=== PATIENT | female | born 1965 | race Caucasian/White ===

== ENCOUNTER 2017-05-14 20:34 | Observation (INO) | payer SELFPAY ==
[~2017-05-14] VITALS: Ht 176.5 cm; Wt 86.2 kg
--- NOTE | ~2017-05-14 | HP ---
Unit #: [id number] #: [id number] Patient: KAREN KING [id number] [address] [address] [id number] I MR#: [id number] NAME: KAREN KING. ROOM: [facility] Age: 52 Sex: F Admission Date: 05/15/2017 : 1965 Attending Physician: Tracy Le M.D. Referring Physician: No Primary Care Physician Primary Care Physician: No Primary Care Physician HISTORY AND PHYSICAL CHIEF COMPLAINT Leg rash, left leg edema, new diagnosis of diabetes mellitus. HISTORY This pleasant healthy, 52-year-old female who is not followed by a primary care physician, is admitted for complaints of leg rash and left leg edema. Patient states that she was well until some months ago and she noticed that her left leg would swell but would improve when supine. However, the past two weeks the leg has been persistently swollen with pain in the left lower calf. Over the past nine days, the patient developed petechial/purpuric rash over her legs, which are somewhat painful. She presents to this emergency department where her serum glucose is 339. She states that about five years ago she checked her Accu-Chek and it was in the 200s. Her fiancee has a glucometer at home. She has chronic polydipsia. Labs are also notable for elevated D-dimer, elevated MCV, elevated LFTs. Patient does drink about 30 to 40 oz of whiskey a day. PAST MEDICAL HISTORY Unremarkable. ALLERGIES None. ALLERGIES None. HOME MEDICATIONS None. FAMILY HISTORY Diabetes mellitus. SOCIAL HISTORY The patient lives with her fianabella. She was smoking but currently is using an E-cigarette. She does drink 30-40 oz of whiskey a day. She works as a photo journalist. Does not use illicit drugs. REVIEW OF SYSTEMS Notable for rash on legs with left leg swelling and left calf pain. Chronic polydipsia. All other systems were reviewed and are otherwise negative. PHYSICAL EXAMINATION Unit #: [id number] #: [id number] Patient: KAREN KING GENERAL: Very pleasant, 52-year-old female who currently is in no acute distress. VITAL SIGNS: Temperature 98.6, pulse 97, respirations 16, blood pressure 144/81, O2 saturation 98% on room air. HEENT: Eyes - PERRLA, extraocular muscles are intact. Pharynx is benign. NECK: Supple without adenopathy or thyromegaly. CHEST: Clear. CARDIAC: Slightly tachy S1 and S2 with a very soft systolic murmur best heard at the upper sternal borders. ABDOMEN: Bowel sounds are present. Patient does have hepatomegaly on exam. Nontender. No masses. EXTREMITIES: Left leg edema. Some discomfort in the left calf with dorsal flexion on the left. Pedal pulses are present. Patient has a vasculitic rash over the lower extremities bilaterally. NEUROLOGIC: Patient is awake, alert and oriented. Cranial nerves are intact. Equal strength throughout. DIAGNOSTIC STUDIES ADMISSION LABS: Hematocrit 40.9, white blood count is normal, platelet count normal, MCV 107.4. Coags normal. Elevated D-dimer. SMA 12 - glucose 339, chloride 99, AST 75, alk phos 123. C-reactive protein mildly elevated at 1.2. ASSESSMENT 1. Bilateral leg rash, rule out leukocytoclastic vasculitis. 2. Left leg edema. 3. New diagnosis of AODM, although I suspect patient has been diabetic for some time. 4. Alcohol abuse. 5. History of tobacco use. PLAN 1. Doppler of the legs, rule out left leg DVT. 2. One dose of prednisone, ask dermatology to see. Will check a hepatitis profile, YOLANDA, and chest x-ray. 3. Hemoglobin A1c. 4. Obtain urinalysis. 5. Benzos and vitamins. 6. Start Glucotrol, constant carb diet. 7. Ask oyster grower to instruct and ask healthcare technician to see for glucometer. 8. Further workup depending on above. Dictated by Ekaterina Hernadez/ts TD: 05/15/2017 06:32 JOB #: [id number] Unit #: [id number] #: [id number] Patient: KAREN KING HISTORY AND PHYSICAL Page 1 of 1 X Tracy Le MD HISTORY AND PHYSICAL
--- NOTE | ~2017-05-14 | A ---
[facility] Nutrition Therapy DATE: 05/15/17 Patient: KAREN KING Physician: SHERLYN Address: [address] [place] [address] Room/Bed: [address] [place] [address], Zip: [place] [address] Admit Date: 05/15/17 Date of : [birth year] Height: 5 9.5 Weight: 190 86.18 NUTRITIONAL ASSESSMENT: REASON: Diabetic diet education consult Admitting dx: 52 y/o female admitted with leg swelling, newly diagnosed DM PMH: daily ETOH use, hx smoking Anthropometrics: Ht: 59.5", Wt: 189 lbs, BMI: 27 (overweight) Labs: glucose 220, POC 311-370, A1C 9.9 Meds: Glucotrol, MVI Assessment: Chart reviewed, events noted. See admitting dx and PMH as stated above. RD consulted to provide DM diet education. Patient newly diagnosed this admission, however MD states he thinks she has had DM for awhile now, but she has not been seeing a PCP. See out of range labs above. She is currently tolerating a consistent carb diet. Pt was sleeping at time of RD visit to room, but she woke up to talk with me. 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 She did not wish to verbally review the handouts provided at this time, which included: T2DM nutrition therapy, 1500 calorie/day 5-day sample meal plan and diabetes label reading tips. Unable to determine pt understanding/motivation of diet education as she did not feel like going over with me at this time, and did not wish for me to return later. RD encouraged diet compliance and 5-10% BW loss (10-20 lbs) to improve glycemic control. Patient agreed and went back to sleep. She will be discharged on glucotrol. See recs below. Recommendations: 1. Continue consistent carb diet, recommend 45-60 g carbs per meal and 15-30 g carbs per snack. 2. RD provided written diabetes diet education as stated above. Contact info left. 3. Encourage diet compliance and 10-20 lb weight loss. 4. CM to see for glucometer instructions. Please consult with any further nutritional needs prior to discharge Respectfully, [facility] Nutrition Therapy DATE: 05/15/17 Patient: KAREN KING Physician: SHERLYN Address: [address] [place] [address] Room/Bed: [address] [place] [address], Zip: [place] [address] Admit Date: 05/15/17 Date of : [birth year] Height: 5 9.5 Weight: [address], LD [facility] cc: client file
--- NOTE | ~2017-05-14 | US84 ---
[id number] [facility] [address] [facility]. [place], [place] [address] [id number] MR#: [id number] Acc #: [id number] NAME: KAREN KING : 1965 SEX: F STUDY DATE/TIME: 05/15/2017 7:44 UNIT: C4 ROOM: [facility] STUDY DESCRIPTION: US LE Veins Complete Ramesh Stdy Attending Physician: Deloris Winston M.D. Referring Physician: Primary Care Physician No Ordering Physician: Tracy Le M.D. Primary Care Physician: Primary Care Physician No MEDICAL IMAGING REPORT This report is preliminary unless electronic signature is present EXAM Bilateral lower extremity venous Doppler INDICATION Bilateral lower extremity edema for the past month. PROCEDURE Arias-scale, color Doppler and Doppler spectral imaging deep veins of the right and left leg. COMPARISON None FINDINGS Deep veins in the right and left leg compress normally, show normal color Doppler and spectral characteristics. IMPRESSION No evidence for DVT in the right or left leg. Dictated by... Juan Miguel Kahn M.D. THIS IS AN ELECTRONICALLY VERIFIED REPORT Juan Miguel Kahn M.D. at 05/19/2017 11:06 AM Jeison TD: 05/15/2017 11:14 JOB #: [id number] MEDICAL IMAGING REPORT Page 1 of 1 COPY
--- NOTE | ~2017-05-14 | DS ---
Unit #: [id number] #: [id number] Patient: KAREN KING [id number] [address] [address] [id number] I MR#: [id number] NAME: KAREN KING. ROOM: [facility] Age: 52 Sex: F Admission Date: 05/15/2017 : 1965 Discharge Date: 05/16/2017 Attending Physician: Deloris Winston M.D. Referring Physician: No Primary Care Physician Primary Care Physician: No Primary Care Physician DISCHARGE SUMMARY PRINCIPAL DIAGNOSES 1. Bilateral lower extremity vasculitis, question Henoch-Schonlein purpura. 2. Newly diagnosed diabetes mellitus type 2 with hemoglobin A1c of 9.9. 3. Chronic alcohol abuse without evidence of withdrawal. 4. Mild vitamin B12 deficiency with vitamin B12 level of 253. 5. Overweight. CONSULTANTS Dr. Knapp - Dermatology. PROCEDURES 1. Chest x-ray on May 15, 2017, with no acute findings. 2. Bilateral extremity venous Doppler which is negative for DVT. CLINICAL HISTORY/HOSPITAL COURSE Ms. King is a really nice 52-year-old female who presents to the emergency department with a new leg rash with associated pain and new left lower extremity edema. Please refer to H and P for further details. In the emergency department, the patient was found to have petechiae over the lower extremities. She was also found to have significant hyperglycemia with a glucose of 340. The patient was subsequently admitted. In regards to patient's vasculitis, she was placed on prednisone. Dr. Knapp was consulted and clinically he feels this is most consistent with Henoch-Schonlein purpura. The patient will be maintained on prednisone. I will not ASO titer was checked and was negative. YOLANDA and viral hepatitis panel is currently pending and I will follow up these after discharge. On prednisone therapy and clobetasol cream, her symptoms are much improved. In regards to patient's elevated blood sugars, her A1c was found to be significantly elevated. She has received dietary education and we have discussed need to refrain from any further alcohol use given this is definitely contributing to her elevated glucose levels. Sugars here have remained elevated but, again, she has been on prednisone therapy. I am going to continue her on medications as outlined below and I think we will have a more accurate assessment of her sugar control at home with alcohol cessation, diet control and off of prednisone in the next several weeks. The patient, again, has chronic alcohol abuse with 30 to 40 ounces of whiskey a day. She had no evidence of alcohol withdrawal here but she was Unit #: [id number] #: [id number] Patient: KAREN KING placed on scheduled Librium. I am going to taper Librium as an outpatient and patient is agreeable to refraining from any further alcohol use. I will note, she did not receive anything on the [facility] protocol. The patient was also found to have a macrocytic anemia with a mild vitamin B12 deficiency. I suspect she also has some underlying folate deficiency and will continue her on a multivitamin and vitamin B12 supplement. Her macrocytosis may also be partially secondary to her chronic alcohol abuse and should be monitored. Today, patient is clinically much improved and I think can be discharged home. DISCHARGE CONDITION Stable. DISCHARGE STATUS Discharge to home. DISCHARGE MEDICATIONS 1. Prednisone 20 mg, two tablets p.o. daily for seven days. 2. Clobetasol 0.05% cream to be applied topically to rash on her legs twice daily for one week. 3. Librium 25 mg, one tablet four times daily for two days, then one tablet t.i.d. for three days, then one tablet b.i.d. for three days, then one tablet daily for three days. 4. Daily multivitamin. 5. Glucotrol 5 mg b.i.d. 6. Vitamin B12 1000 mcg p.o. daily. DISCHARGE INSTRUCTIONS The patient was instructed to follow a constant carb diet, to refrain from any further alcohol use. She will do Accu-Cheks twice daily at home, one fasting and one meal two hours postprandial but I informed her again it would probably be about ten days before we get more accurate readings. FOLLOWUP The patient will follow up in transition clinic in approximately two weeks. She is to bring a log of her sugars to the visit and her glucometer. If sugars after completion of steroids are remaining above 200, perhaps initiation of metformin will also be appropriate. Will try to arrange long term care phlebotomist primary care at that time as well. Dictated by... Deloris Winston M.D. FELICIANO/jonnathan TD: 05/16/2017 12:28 JOB #: [id number] Unit #: [id number] #: [id number] Patient: KAREN KING DISCHARGE SUMMARY Page 1 of 1 X Deloris Winston MD X DISCHARGE SUMMARY
--- NOTE | ~2017-05-14 | CR63 ---
[facility] A Service of [facility] RADIOLOGY TEXT RESULTS PATIENT: KAREN KING LOCATION: [facility] : [birth year] UNIT #: [id number] AGE: [address]: Deloris Winston MD SEX: F ORDER DR: [id number] [place], [place] [address] [id number] I MR#: [id number] Acc #: [id number] NAME: KAREN KING : 1965 SEX: F STUDY DATE/TIME: 05/15/2017 7:25 UNIT: [facility] ROOM: [facility] STUDY DESCRIPTION: CR Chest 2 View Attending Physician: Deloris Winston M.D. Referring Physician: No Primary Care Physician Ordering Physician: Tracy Le M.D. Primary Care Physician: No Primary Care Physician MEDICAL IMAGING REPORT This report is preliminary unless electronic signature is present EXAM PA and lateral chest. DATE 05/15/2017 HISTORY 52-year-old female, vasculitis with a rash and swelling of the bilateral lower extremities and shortness of breath since yesterday. Diabetes. COMPARISON None FINDINGS No acute airspace disease. Normal heart size. No pleural effusion or pneumothorax. IMPRESSION No acute cardiopulmonary findings. Dictated by... Mandy Ibarra M.D. THIS IS AN ELECTRONICALLY VERIFIED REPORT Mandy Ibarra M.D. at 05/16/2017 2:02 PM [facility]/rochelle TD: 05/15/2017 11:22 JOB #: [id number] MEDICAL IMAGING REPORT [facility] A Service of [facility] RADIOLOGY TEXT RESULTS PATIENT: KAREN KING LOCATION: [facility] : 61 UNIT #: [id number] AGE: [address]: Deloris Winston MD SEX: F ORDER DR: Page 1 of 1 COPY
[2017-05-14 22:43] LABS: BASOPHIL% 0.9 % (0-2.5); EOSINOPHIL% 0.7 % (0.0-7.0); HEMATOCRIT 40.9 % (35.0-45.0); HEMOGLOBIN 14.2 gm/dL (12.0-16.0); LYMPHOCYTE# 1.5 X10e3 (1.0-3.5); LYMPHOCYTE% 29.6 % (17.0-45.0); MEAN CELL VOLUME 107.4 FL (83-96); MEAN CORPUSCULAR HEMOGLOBIN 37.4 PG (28-34); MEAN CORPUSCULAR HGB CONC 34.8 g/dL (30-36); MONOCYTE# 0.2 X10e3 (0-1.0); MONOCYTE% 4.3 % (3.0-12.0); NEUTROPHIL# 3.3 X10e3 (1.5-7.1); NEUTROPHIL% 64.5 % (40-75); PLATELET COUNT 169 X10e3 (140-420); RED CELL DISTRIBUTION WIDTH 15.1 % (11.0-15.5); WHITE BLOOD COUNT 5.1 X10e3 (4.0-10.5)
[2017-05-14 22:44] LABS: DIFF IND YES
[2017-05-14 22:56] LABS: PARTIAL THROMBOPLASTIN TIME 25.6 SECONDS (23.5-31.3); PROTHROMBIN TIME (PATIENT) 10.7 SECONDS (10.0-11.7)
[2017-05-14 23:12] LABS: ALBUMIN SERUM 3.9 g/dL (3.5-5.0); BILIRUBIN, DIRECT 0.3 mg/dL (0.0-0.2); BILIRUBIN,INDIRECT 0.5 mg/dL (0.0-0.9); BILIRUBIN,TOTAL 0.8 mg/dL (0.2-2.0); CALCIUM SERUM 8.7 mg/dL (8.4-10.2); CREATININE SERUM 0.5 mg/dL (0.6-1.4); GLOM FILT RATE Estimated 109.7 mL/min (>60); POTASSIUM 3.6 mmol/L (3.5-5.1); PROTEIN TOTAL SERUM 7.3 g/dL (6.0-8.3)
[2017-05-14 23:17] LABS: PLATELET ESTIMATE NORMAL (NORMAL)
[2017-05-14 23:18] LABS: ANISOCYTOSIS SL
[2017-05-15 04:19] LABS: BASOPHIL# 0.1 X10e3 (0-0.3); BASOPHIL% 0.8 % (0-2.5); DIFF IND NO; EOSINOPHIL% 0.4 % (0.0-7.0); HEMATOCRIT 41.3 % (35.0-45.0); LYMPHOCYTE# 1.3 X10e3 (1.0-3.5); LYMPHOCYTE% 17.1 % (17.0-45.0); MEAN CELL VOLUME 107.4 FL (83-96); MEAN CORPUSCULAR HEMOGLOBIN 36.4 PG (28-34); MEAN CORPUSCULAR HGB CONC 33.9 g/dL (30-36); MEAN PLATELET VOLUME 8.2 FL (6.5-11.5); MONOCYTE# 0.4 X10e3 (0-1.0); MONOCYTE% 5.8 % (3.0-12.0); NEUTROPHIL# 5.6 X10e3 (1.5-7.1); NEUTROPHIL% 75.9 % (40-75); PLATELET COUNT 188 X10e3 (140-420); RED BLOOD COUNT 3.85 X10e (3.90-5.30); RED CELL DISTRIBUTION WIDTH 15.4 % (11.0-15.5); WHITE BLOOD COUNT 7.4 X10e3 (4.0-10.5)
[2017-05-15 04:39] LABS: BUN/CREATININE RATIO 17.5; CALCIUM SERUM 8.6 mg/dL (8.4-10.2); CREATININE SERUM 0.4 mg/dL (0.6-1.4); GLOM FILT RATE Estimated 118.1 mL/min (>60); POTASSIUM 3.8 mmol/L (3.5-5.1)
[2017-05-15 08:49] LABS: URINE APPEARANCE CLEAR; URINE BILIRUBIN NEG (NEG); URINE BLOOD NEG (NEG); URINE COLOR YELLOW; URINE GLUCOSE NEG (NEG); URINE KETONE NEG (NEG); URINE LEUKOCYTE ESTERASE NEG (NEG); URINE NITRATE NEG (NEG); URINE PROTEIN NEG (NEG); URINE SPECIFIC GRAVITY 1.004 (1.003-1.035)
[2017-05-15 08:53] LABS: CULTURE INDICATED? NO
[2017-05-16 02:19] LABS: HEMATOCRIT 37.7 % (35.0-45.0); MEAN CELL VOLUME 107.4 FL (83-96); MEAN CORPUSCULAR HEMOGLOBIN 37.1 PG (28-34); MEAN CORPUSCULAR HGB CONC 34.6 g/dL (30-36); MEAN PLATELET VOLUME 8.3 FL (6.5-11.5); RED BLOOD COUNT 3.51 X10e (3.90-5.30); RED CELL DISTRIBUTION WIDTH 15.5 % (11.0-15.5); WHITE BLOOD COUNT 5.5 X10e3 (4.0-10.5)
[2017-05-16 02:40] LABS: CALCIUM SERUM 8.8 mg/dL (8.4-10.2); CREATININE SERUM 0.5 mg/dL (0.6-1.4); GLOM FILT RATE Estimated 109.7 mL/min (>60); POTASSIUM 5.1 mmol/L (3.5-5.1)
[2017-05-16] MEDS ORDERED: LIBRIUM25 M1 PO (09:23)
[2017-05-16] MEDS ORDERED: DELTASONE20 MG PO (09:24)
[2017-05-16] MEDS ORDERED: GLUCOTROL PO (09:28)
[2017-05-16] MEDS ORDERED: CLOBETASOL 0.0560 GM TOP (09:32)
[2017-05-16] MEDS ORDERED: THERA-M CAPLET1 EACH PO (09:34)
[2017-05-16] MEDS ORDERED: B-121000 MC1 PO (09:35)
[2017-05-20 22:56] LABS: ANA SCREEN Negative (Negative); HA AB IGM (HEPPAN) Nonreactive (()); HB CORE AB IGM (HEPPAN) Nonreactive (Nonreactive); HB S AG (HEPPAN) Nonreactive (Nonreactive); HEP C AB (HEPPAN) Nonreactive (Nonreactive); HEP C AB SIGNAL TO CUTOFF 0.04 ratio (<1.00)
== END 2017-05-16 13:55 | disposition home or self-care (01) | DRG 547 ==
LOC: CFTX 20:34 → CED 20:34 → CFTX 22:34 → CEDOF 05-15 01:46 → C4C 05-15 01:46 → CEDOF 05-15 02:00 → C4C 05-15 02:36 → CEDOF 05-15 02:36 → C4C 05-15 08:56
PROVIDERS: Internal Medicine; Physician Assistant
DX: I77.6 Arteritis, unspecified (principal); R63.1 Polydipsia; E11.9 Type 2 diabetes mellitus without complications; E53.8 Deficiency of other specified B group vitamins; F10.10 Alcohol abuse, uncomplicated; F17.210 Nicotine dependence, cigarettes, uncomplicated
CPT/HCPCS: 36415; 71020; 80048; 80074; 80076; 81003; 82607; 82947; 83036; 84443; 85025; 85027; 85379; 85610; 85652; 85730; 86038; 86039; 86060; 86140; 93970; 96360; 99285; G0378; J1815

== ENCOUNTER → 2017-06-05 | Outpatient (CLI) | payer SELFPAY ==
[~2017-06-05] MED LIST: B-121000 MC1 PO; CLOBETASOL 0.0560 GM TOP; DELTASONE20 MG PO; GLUCOTROL PO; LIBRIUM25 M1 PO; THERA-M CAPLET1 EACH PO
== END | disposition home or self-care (01) ==
LOC: CBAR 11:01
DX: M25.50 Pain in unspecified joint (principal); L95.9 Vasculitis limited to the skin, unspecified; E11.9 Type 2 diabetes mellitus without complications; F10.10 Alcohol abuse, uncomplicated; G62.9 Polyneuropathy, unspecified; E53.8 Deficiency of other specified B group vitamins; R60.0 Localized edema
CPT/HCPCS: 82947